=== PATIENT | female | born 1995 | race Caucasian/White ===

== ENCOUNTER → 2016-08-11 | Outpatient (CLI) | payer BC | END | disposition home or self-care (01) | LOC: RAD.S 07-28 10:25 | DX: M54.2 Cervicalgia (principal); R51 Headache; R20.0 Anesthesia of skin; R20.2 Paresthesia of skin; H53.9 Unspecified visual disturbance; Z86.69 Personal history of other diseases of the nervous system and sense organs; G93.5 Compression of brain ==